=== PATIENT | female | born 1990 | race Caucasian/White ===

== ENCOUNTER 2022-07-23 09:06 | Emergency (ER) | payer MEDICAID ==
[~2022-07-23] VITALS: Ht 165.1 cm; Wt 95.0 kg
[~2022-07-23 09:06] MED LIST: MECL25TA3 PO
[2022-07-23 10:07] LABS: BASOPHILS % (AUTO) 0.3 % (0-1); EOSINOPHILS # (AUTO) 0.1 X10'3 (0-0.9); EOSINOPHILS % (AUTO) 1.8 % (0-6); HEMATOCRIT 38.9 % (35.0-45.0); LYMPHOCYTES # (AUTO) 2.1 X10'3 (1.1-4.8); LYMPHOCYTES % (AUTO) 31.1 % (21-51); MEAN CORPUSCULAR HEMOGLOBIN 27.4 PG (27.0-31.0); MEAN CORPUSCULAR HGB CONC 33.4 g/dL (33.0-36.5); MEAN CORPUSCULAR VOLUME 82.1 FL (78-98); MEAN PLATELET VOLUME 7.8 FL (7.4-10.4); MONOCYTES # (AUTO) 0.5 X10'3 (0-0.9); MONOCYTES % (AUTO) 6.8 % (2-12); PLATELET COUNT 294 X10'3 (140-440); RED BLOOD COUNT 4.74 X10'6 (4.20-5.60); RED CELL DISTRIBUTION WIDTH 13.8 % (11.5-14.5); WHITE BLOOD COUNT 6.7 X10'3 (4.5-11.0)
[2022-07-23 10:14] LABS: ALANINE AMINOTRANSFERASE 27 U/L (12-78); ALBUMIN 3.9 G/DL (3.4-5.0); ALKALINE PHOSPHATASE 80 IU/L (46-116); ANION GAP 10 (8-16); ASPARTATE AMINO TRANSFERASE 15 U/L (10-37); BILIRUBIN,TOTAL 0.2 MG/DL (0.1-1.0); BLOOD UREA NITROGEN 14 MG/DL (7-18); BUN/CREATININE RATIO 20.3 (6.6-38.0); CALCIUM 8.9 MG/DL (8.5-10.1); CHLORIDE 104 MMOL/L (99-107); CREATININE 0.69 MG/DL (0.40-0.90); GLUCOSE 95 MG/DL (70-104); POTASSIUM 4.2 MMOL/L (3.5-5.1); SODIUM 141 MMOL/L (135-145); TOTAL CARBON DIOXIDE 27.3 MMOL/L (24-32); TOTAL PROTEIN 7.8 G/DL (6.4-8.2); eGFR > 90 ML/MIN
[2022-07-23] MEDS ORDERED: NO HOME MEDS (11:23)
[2022-07-23] MEDS ORDERED: diazepam inj 5 MG/ML inj. IV ONE (11:30)
[2022-07-23] MEDS ORDERED: diphenhydrAMINE 50 mg/ml inj IV ONE (11:30)
[2022-07-23] MEDS ORDERED: ketorolac trometh. 30mg/ml inj. IV ONE (11:30)
[2022-07-23] MEDS ORDERED: proCHLORperazine 10 MG/2 ml inj IV ONE (11:30)
[2022-07-23] MEDS ORDERED: normal saline 1000ML IV soln IVB ONE (11:35)
[2022-07-23 12:01] VITALS: BP 122/79
== END 2022-07-23 13:34 | disposition home or self-care (01) ==
LOC: ER 09:07
DX: G43.909 Migraine, unspecified, not intractable, without status migrainosus (principal); R11.0 Nausea; Z88.6 Allergy status to analgesic agent; Z88.2 Allergy status to sulfonamides; Z88.8 Allergy status to other drugs, medicaments and biological substances
CPT/HCPCS: 36415; 70450; 80053; 85025; 96361; 96374; 96375; 99284; J0780; J1200; J1885; J3360; J7030

== ENCOUNTER 2023-03-14 21:58 | Emergency (ER) | payer MEDICAID ==
[~2023-03-14] VITALS: Ht 167.6 cm; Wt 93.2 kg
[~2023-03-14 21:58] MED LIST changes: -MECL25TA3 PO; +NO HOME MEDS
[2023-03-14 22:12] VITALS: BP 150/71
== END 2023-03-15 01:41 | disposition left against medical advice (07) ==
LOC: ER 21:59
DX: M54.2 Cervicalgia (principal); Z53.21 Procedure and treatment not carried out due to patient leaving prior to being seen by health care provider; V87.7XXA Person injured in collision between other specified motor vehicles (traffic), initial encounter; Y93.89 Activity, other specified; Y92.488 Other paved roadways as the place of occurrence of the external cause; Y99.8 Other external cause status
CPT/HCPCS: 99281

== ENCOUNTER 2023-07-23 19:04 | Emergency (ER) | payer MEDICAID ==
[~2023-07-23] VITALS: Ht 165.1 cm; Wt 96.4 kg
[2023-07-23 19:13] VITALS: BP 122/80; PULSE 91; RESP 18; TEMP 97.8; O2SAT 100
[2023-07-23] MEDS ORDERED: ibuprofen 200mg tablet PO ONE (20:00)
== END 2023-07-23 21:04 | disposition home or self-care (01) ==
LOC: ER 19:05
DX: S63.501A Unspecified sprain of right wrist, initial encounter (principal); G43.909 Migraine, unspecified, not intractable, without status migrainosus; Z88.8 Allergy status to other drugs, medicaments and biological substances; Z88.2 Allergy status to sulfonamides; Z91.048 Other nonmedicinal substance allergy status; X50.1XXA Overexertion from prolonged static or awkward postures, initial encounter; Y93.89 Activity, other specified; Y92.89 Other specified places as the place of occurrence of the external cause; Y99.8 Other external cause status
CPT/HCPCS: 29125; 73110; 99283

== ENCOUNTER 2024-06-01 14:39 | Emergency (ER) | payer MEDICAID ==
[~2024-06-01] VITALS: Ht 167.6 cm; Wt 95.1 kg
[2024-06-01 15:29] VITALS: BP 114/71; PULSE 90; RESP 14; O2SAT 100
[2024-06-01 16:00] VITALS: TEMP 98
== END 2024-06-01 15:58 | disposition home or self-care (01) ==
LOC: ER 14:40
DX: S00.83XA Contusion of other part of head, initial encounter (principal); S09.8XXA Other specified injuries of head, initial encounter; Z88.2 Allergy status to sulfonamides; Z88.8 Allergy status to other drugs, medicaments and biological substances; X58.XXXA Exposure to other specified factors, initial encounter; Y93.89 Activity, other specified; Y92.89 Other specified places as the place of occurrence of the external cause; Y99.8 Other external cause status; G43.909 Migraine, unspecified, not intractable, without status migrainosus
CPT/HCPCS: 99281

== ENCOUNTER 2025-08-02 14:40 | Emergency (ER) | payer MEDICAID ==
[~2025-08-02] VITALS: Ht 167.6 cm; Wt 83.2 kg
[2025-08-02 14:51] VITALS: BP 118/80; PULSE 96; TEMP 97.8; O2SAT 99
--- NOTE | 2025-08-02 15:04 | Physician Documentation ---
History of Present Illness ~ Chief Complaint: Headache Stated Complaint: HEAD PAIN NAUSEA Time Seen by MD: 15:04 Primary Medical Doctor: REPLACED BY [facility] 35-year-old female that presents to the emergency department for evaluation of headache and nausea x4 days. Patient reports that she was struck in the head by a volleyball on Wednesday. Since that time she has experienced nausea no vomiting headache sensitivity to light. Patient denies any LOC at time of incident. Patient reports a history significant for migraines. She reports that she usually experiences similar episodes when she has migraines and needs to decrease light stimuli take Tylenol and ibuprofen for a couple of days before they resolve. Patient reports history of POTS. Other symptoms reported at this time. Medication Reconciliation Allergies: Coded Allergies: nortriptyline (Verified Allergy, Intermediate, i get crazy, 05/22/15) tramadol (Verified Allergy, Intermediate, anxiety, 05/22/15) Sulfa (Sulfonamide Antibiotics) (Verified Allergy, Unknown, 05/22/15) adhesive tape (Verified Allergy, Unknown, 07/23/23) Miscellaneous Medications Home Med List (No Home Medications), (Reported) Past Medical History Past Medical History: Headache, Migraine Past Surgical History: no surgical history Alcohol Use: Rarely Lives In: Home Occupation: employed Review of Systems ROS As stated above in the HPI, otherwise all systems are reviewed and negative. Physical Exam Vital Signs: Temperature: 97.8, Source: Temporal, Heart Rate: 96, Respiratory Rate: 15, BP: 118/80, Pulse Oximetry: 99, Weight: 83.200 Physical Exam VITALS: Reviewed and as above. GENERAL: Alert, no apparent distress. HEENT: Normocephalic, atraumatic, PERRL, EOMI, dry mucosa, no erythema RESPIRATORY: Lungs clear, normal breath sounds, no respiratory distress. CHEST: No accessory muscle use, no retractions CV: Regular rate, rhythm, no edema, no murmur, No: JVD GI: Soft, non-tender, bowels sounds present, no rebound, guarding, or rigidity BACK: No CVA tenderness, or swelling MUSCULOSKELETAL No deformities, no edema SKIN: Warm and dry, no rash NEURO: Oriented x4, No motor or sensory deficit PSYCH: Normal mood and affect, no agitation Progress Results/Orders Results/Orders Completed Orders - MAX,LYNN A ROAD BOSS Ketorolac Trometh 15mg/Ml Vial (Toradol (08/02/25 15:05) Diphenhydramine Capsule (Benadryl Capsul (08/02/25 15:05) Acetaminophen 325mg Tablet (Tylenol Tabl (08/02/25 15:05) Medications Received in ER Medications (Trade) Dose Ordered Sig/Micki Route PRN Reason Start Time Stop Time Status Last Admin Dose Admin (Toradol injection) 15 mg ONCE ONCE IM 08/02/25 15:05 08/02/25 15:07 DC 08/02/25 15:24 15 MG (Benadryl capsule) 25 mg ONCE ONCE PO 08/02/25 15:05 08/02/25 15:07 DC 08/02/25 15:24 25 MG (Tylenol tablet) 975 mg ONCE ONCE PO 08/02/25 15:05 08/02/25 15:07 DC 08/02/25 15:24 975 MG Vital Signs 08/02/25 08/02/25 08/02/25 14:51 15:24 16:20 Temp 97.8 Pulse 96 Resp 15 16 16 B/P (MAP) 118/80 Pulse Ox 99 Medical Decision Making Findings This patient presents with a headache most consistent with benign headache from either tension type headache vs migraine. No headache red flags. Neurologic exam without evidence of meningismus, AMS, focal neurologic findings so doubt meningitis, encephalitis, stroke. Presentation not consistent with acute intracranial bleed to include SAH (lack of risk factors, headache history). No history of trauma so doubt ICH. Given history and physical temporal arteritis unlikely, as is acute angle closure glaucoma. Doubt carotid artery dissection given no focal neuro deficits, no neck trauma or recent neck strain. Patient with no signs of increased intracranial pressure or weight loss and history and physical suggest more benign headache so less likely mass effect in brain from tumor or abscess or idiopathic intracranial hypertension. Pain was controlled with headache cocktail and patient discharged home with PMD follow up. Patient will return to the emergency department with any worsening or recurrent symptoms or any additional concerning symptoms that we discussed here today i.e. increased headache blurry vision nausea vomiting thunderclap headache (worst headache of her life) dizziness lightheadedness difficulty with ambulation or any other concerning symptoms. Differential Dx:Considerations: Include: RAE-Cluster, RAE-Migraine, RAE- Hypertensive, RAE-Muscular contraction, RAE-Post lumbar puncture, Carbon monoxide toxicity, Close head injuyr, CVA, Fever induced, Hemorrhage-Epidural, Hemorrhage-Intracerebral, Hemorrhage-Subarachnoid, Hemorrhage-Subdural, Mass lesion, Meningitis, Post-traumtic, Pseudotumor cerebri, Sinusitis, Temporal arteritis, Trigeminal neuralgia, Other Departure Disposition: 01 HOME / SELF CARE / HOMELESS Impression: Primary Impression: Headache Additional Impression: Brain concussion Condition: Stable Discharge Instructions: Headache, Migraine Headache Additional Instructions: This patient presents with a headache most consistent with benign headache from either tension type headache vs migraine. No headache red flags. Neurologic exam without evidence of meningismus, AMS, focal neurologic findings so doubt meningitis, encephalitis, stroke. Presentation not consistent with acute intracranial bleed to include SAH (lack of risk factors, headache history). No history of trauma so doubt ICH. Given history and physical temporal arteritis unlikely, as is acute angle closure glaucoma. Doubt carotid artery dissection given no focal neuro deficits, no neck trauma or recent neck strain. Patient with no signs of increased intracranial pressure or weight loss and history and physical suggest more benign headache so less likely mass effect in brain from tumor or abscess or idiopathic intracranial hypertension. Pain was controlled with headache cocktail and patient discharged home with PMD follow up. Patient will return to the emergency department with any worsening or recurrent symptoms or any additional concerning symptoms that we discussed here today i.e. increased headache blurry vision nausea vomiting thunderclap headache (worst headache of her life) dizziness lightheadedness difficulty with ambulation or any other concerning symptoms. Please increase your fluids. Tylenol ibuprofen as needed for discomfort starting in the morning. Please follow up with the primary care provider. Please return to the emergency department if you have any worsening or recurrent symptoms or any additional concerning symptoms that we discussed here today. Departure Forms: Excuse form Work or School Excused From: Work Excuse beginning now through the following date: Aug 02, 2025 May Return but still avoid physical Activity from now until: Aug 06, 2025 Referrals: NO PRIMARY CARE PROVIDER (PCP) Education Educated: Patient Educated regarding: diagnosis, treatment, need for follow up Signature Scribe Signature: A Attestation: Scribed for Lynn Santana by MIREILLE Thomas . 08/02/25 17:27 LYNN SANTANA Aug 02, 2025 15:04
[2025-08-02] MEDS: ketorolac trometh 15mg/ml vial 15 MG/ML ML IM ONE (15:24)
[2025-08-02 16:20] VITALS: RESP 16
== END 2025-08-02 17:33 | disposition home or self-care (01) ==
LOC: ER 14:40
DX: S06.0X0A Concussion without loss of consciousness, initial encounter (principal); G43.909 Migraine, unspecified, not intractable, without status migrainosus; Z88.2 Allergy status to sulfonamides; Z88.5 Allergy status to narcotic agent; Z91.048 Other nonmedicinal substance allergy status; W21.06XA Struck by volleyball, initial encounter; Y93.89 Activity, other specified; Y92.89 Other specified places as the place of occurrence of the external cause; Y99.8 Other external cause status
CPT/HCPCS: 96372; 99283; J1885; Q0163